=== PATIENT | female | born 1985 | race Caucasian/White ===

== ENCOUNTER 2022-08-25 12:32 | Outpatient (CLI) | payer SELFPAY | END 2022-08-25 12:33 | disposition home or self-care (01) | LOC: NFLDREF 12:32 | PROVIDERS: Visit Provider Registered Nurse | DX: Z01.419 Encounter for gynecological examination (general) (routine) without abnormal findings (principal); E66.9 Obesity, unspecified; R63.5 Abnormal weight gain | CPT/HCPCS: 84443 ==

== ENCOUNTER 2023-10-14 13:42 | Outpatient (CLI) | payer MEDICAID, SELFPAY ==
--- OUTSIDE RECORDS SUMMARY | 2023-10-14 13:44 | XMS_ITS | Clinical Summary ---
Author Name Unknown Organization [facility] Address [place], [place] [address] Care Team Providers Care Post Hole Digger Name Role Phone Adelita Galicia LP Unavailable Pcp, No Primary Care Provider Unavailabl e Allergies No known active allergies Medications Medication Sig Dispensed Refills Start Date End Date Status fluticasone (50 mcg per actuation) nasal solution (FLONASE)Indication s:Seasonal allergic rhinitis, unspecified allergic rhinitis trigger Inhale 2 Sprays into both nostrils once daily. 1 Bottle 11 09/21/2016 Active triamcinolone (ARISTOCORT; KENALOG) 0.1 % creamIndications:De rmatitis Apply topically to affected area(s) 2 times daily. To itchy area, if generalized rash use Prednisone instead 1 Tube 07/26/2017 Active hydroCHLOROthiazide (HCTZ) 25 mg tabletIndications:P edal edema TAKE 1 TABLET BY MOUTH ONCE DAILY. 30 tablet 10/23/2017 Active LORazepam (ATIVAN) 0.5 mg tabIndications:Situ ational anxiety Take 1 tablet by mouth every 6 hours if needed for Anxiety or Other (Specify) (take 1 hour before flying). 10 tablet 06/13/2018 Active pseudoephedrine-gua FENesin (MUCINEX D MAXIMUM STRENGTH) 120-1,200 mg [id number]:Reno al congestion Take 1 Tab by mouth 2 times daily. 24 Tab 08/01/2018 Active Hospital, Clinic, or Other Facility Administered Medication Ordered Dose Route Frequency Start Date End Date Status etonogestrel subdermal implant 1 Each (NEXPLANON)Indications:Encoun ter for contraceptive management, unspecified contraceptive encounter type 1 Each Sdrm Q 3 YEARS 11/07/2015 Active etonogestrel subdermal implant 1 Each (NEXPLANON)Indications:Insert ion of Nexplanon 1 Each Sdrm Q 3 YEARS 06/13/2018 Active Active Problems Problem Noted Date Diagnosed Date Hx of abnormal cervical Pap smear 07/26/2017 Overview: DANIELLE 1 2013, persistent HPV x 2 years Pap normal 2016 BMI 32.0-32.9,adult 09/18/2011 Resolved Problems Problem Noted Date Diagnosed Date Resolved Date ASCUS with positive high risk HPV cervical 01/05/2014 07/26/2017 Overview: 02/17/2014 [place]; DANIELLE 1 01/17/2015 Pap; Pap NIL/HPV positive 07/18/2014 [place]; DANIELLE 1 & Pap ASCUS/HPV positive; 08/2016 Pap: NIL/HPV Negative; Pap/HPV in 3 years; Due- 08/2019 Immunizations Name Administration Dates Next Due DTP 01/02/1989, 9,03/16/1988,11/05 DTaP 02/07/1993 Hepatitis A (Adult) 09/27/2012 Hepatitis B (Peds) 01/21/2006,03/05/2000, 000 Human Papilloma Virus Vaccine 12/28/2013, 013,08/31/2007 Influenza, IIV4 03/01/2017 Influenza, IIV4 (=>6mos) MDV 03/10/2017 MMR 01/16/2000,01/02/1989 Meningococcal Vaccine (Menactra) 01/21/2006 Meningococcal Vaccine (Menomune) 01/21/2006 Oral Polio Vaccine 02/07/1993, 9,03/16/1988,11/05 Td (Age >=7 Years) 11/29/2007,01/16/2000 Td, Preservative Free (age >= 7 Years) 8 Tdap 08/31/2007 Family History Medical History Relation Name Comments Diabetes Maternal Grandfather Cancer-breast Maternal Grandmother GI Disease Paternal Aunt crohns Relation Name Status Comments Father Alive Maternal Grandfather Maternal Grandmother Mother Alive Paternal Aunt Social History Tobacco Use Types Packs/Day Years Used Date Smoking Tobacco: Former Cigarettes Q uit: 12/29/2006 Smokeless Tobacco: Never Tobacco Cessation:Counseling Given: Yes Alcohol Use Standard Drinks/Week Comments Yes 0 (1 standard drink = 0.6 oz pur e alcohol) occassional PHQ-2 Answer Date Recorded PHQ-2 Score 0 08/01/2018 [facility] - Occupational Stress Questionnaire Answer Date Recorded Feeling of Stress Only a little 08/01/2018 Exercise Vital Sign Answer Date Recorde d Days of Exercise per Week 4 days 2018 Minutes of Exercise per Session 30 min 08/01/2018 Sex and Gender Information Value Date Recorded Sex Assigned at Not on file Gender Identity Not on file Sexual Orientation Not on file Obstetrics History Para Term AB IAB SAB Ectopic Multiple Livin g Live Births 0 0 0 0 0 0 0 0 0 0 Last Filed Vital Signs Vital Sign Reading Time Taken Comments Blood Pressure 126/83 08/01/2018 9:11 AM ORCHESTRA DIRECTOR Pulse 84 08/01/2018 9:11 AM ORCHESTRA DIRECTOR Temperature 36.6 ??C (97.9 ??F) 08/01/2018 9:11 AM CS T Respiratory Rate - - Oxygen Saturation 99% 08/01/2018 9:11 AM ORCHESTRA DIRECTOR Inhaled Oxygen Concentration - - Weight 98.1 kg (216 lb 4.8 oz) 08/01/2018 9:11 A M ORCHESTRA DIRECTOR Height 163.5 cm (5' 4.37) 08/01/2018 9:11 AM CS T Body Mass Index 36.7 08/01/2018 9:11 AM ORCHESTRA DIRECTOR Plan of Treatment Health Maintenance Due Date Last Done Comments Hepatitis C screening for age 18-79 09/16/2005 BMI (ht and wt on same day) for age 18+ 08/02/2019 08/01/2018, 06/13/2018, 05/18/2018, Additional history exists Depression screening for age 12+ 08/05/2019 08/04/2018, 08/01/2018, 07/26/2017, Additional history exists COVID-19 vaccine series (2022- season) 2023 Influenza for age 9-49 01/30/2024 03/10/2017, 2016 Pap test for age 21-65 08/25/2025 , 08/25/2022, 03/25/2021, Additional history exists Tetanus booster 12/07/2027 12/06/2017, 07/0 05/2007, 08/31/2007, Additional history exists Tdap Completed 08/31/2007 HIV for age 15-65 Completed 08/01/2018 Pneumococcal series for age 6-64 Aged Out No longer eligible based on patient's age to complete this topic Procedures Procedure Name Priority Date/Time Associated Diagnosis Comments HPV THIN PREP Routine 08/25/2022 12:00 PM CDT ANTI HIV 1/2 Routine 08/01/2018 10:16 AM ORCHESTRA DIRECTOR Encounter for screening for HIV from Last 3 Months or Most Recently Relevant to Health Maintenance Results * HPV HIGH RISK (08/25/2022 12:00 PM CDT) TYPE 16 Negative Negative 09/01/2022 4:56 PM CDT [facility] TYPE 18 Negative Negative 09/01/2022 4:56 PM CDT [facility] OTHER HIGH RISK TYPES Negative Negative 09/01/2022 4:56 PM CDT [facility] Other (Cervical) 08/25/2022 12:00 PM CDT 08/28/2022 5:35 PM CDT Narrative [facility] - 09/01/2022 4:56 PM CDT HPV types 16, 18, 31, 33, 35, 39, 45, 51, 52, 56, 58, 59, 66 and 68 DNA were undetectable or below the pre-set threshold. Methodology: Mehdi Bre 4800 HPV Test Indira Lorenzo NP MICROBIOLOGY [facility] [address] [place] [address], * ANTI HIV 1/2 (08/01/2018 10:16 AM ORCHESTRA DIRECTOR) HIV-1/HIV-2 ANTIBODY Non-Reacti ve Non-Reacti ve 08/01/2018 4:25 PM ORCHESTRA DIRECTOR [facility] Comment:HIV-1 p24 and HIV-1/ HIV-2 Ab not detected. Blood BLOOD SPECIMEN / Unknown Venipuncture / Unknown 08/01/2018 10:16 AM ORCHESTRA DIRECTOR 08/01/2018 10:16 AM ORCHESTRA DIRECTOR Crys Miller MD SEND OUTS [facility] [address] [place] [address], from Last 3 Months or Most Recently Relevant to Health Maintenance Care Teams Post Hole Digger Relationship Specialty Start Date End Date Pcp, No . PCP - General 02/11/19 Adelita Galicia LP Psychologist Psychology 11/23/11
--- NOTE | 2023-10-14 14:00 | US_ITS ---
Patient: CHERRI SANTANA Facility:?[facility] Patient ID:?[id number] Site Patient ID:?[id number]. Site :?[id number] Study:?US-OB Pelvis DATING AND VIABILITY-10/14/2023 2:31:38 PM Ordering Physician:?XENA YOUNG Final Report: INDICATION: First trimester scan, establish dates. COMPARISON: None. TECHNIQUE: Real-time banks-scale imaging of the pelvis was performed. FINDINGS: Sonographic imaging demonstrates a single living intrauterine gestation. The embryo demonstrates a regular cardiac rate measuring 169 beats per minute. The embryo`s crown-rump length measurement of 1.5 cm corresponds to a gestational age of 7 weeks 6 days with a sonographic due date of 05/26/2024. There is a normal-appearing yolk sac. There are no gross abnormalities noted within the embryo at this early state of development. The gestational sac has a normal appearance. There is no evidence of a perigestational hemorrhage. The amount of fluid within the sac appears appropriate for gestational age. The cervix is closed. The myometrium appears normal. The ovaries are of normal size. Corpus luteal cyst right ovary. There are no suspicious fluid collections noted in the cul-de-sac. IMPRESSION: Normal first trimester OB ultrasound exam. Gestational age calculated at 7 weeks 6 days with a sonographic due date of 05/26/2024. Dictated by Kota Gustafson MD @ 10/15/2023 9:55:08 AM Signed by:?Kota Gustafson MD @10/15/2023 9:55:08 AM (Electronic Signature)
== END 2023-10-14 13:43 | disposition home or self-care (01) ==
LOC: US 13:43
PROVIDERS: PCP Family Medicine; Visit Provider Advanced Practice Midwife
DX: Z34.91 Encounter for supervision of normal pregnancy, unspecified, first trimester (principal); Z3A.01 Less than 8 weeks gestation of pregnancy
CPT/HCPCS: 76817

== ENCOUNTER 2023-10-14 14:53 | Outpatient (CLI) | payer MEDICAID, SELFPAY ==
--- OUTSIDE RECORDS SUMMARY | 2023-10-14 14:56 | XMS_ITS | Clinical Summary ---
Author Name Unknown Organization [facility] Address [place], [place] [address] Care Team Providers Care Marketing Planner Name Role Phone Adelita Galicia LP Unavailable [...] FENesin (MUCINEX D MAXIMUM STRENGTH) 120-1,200 mg [id number]:Reno al congestion Take 1 Tab by mouth [...] risk HPV cervical 01/05/2014 07/26/2017 Overview: 02/17/2014 [place]; DANIELLE 1 01/17/2015 Pap; Pap NIL/HPV positive 07/18/2014 [place]; DANIELLE 1 & Pap ASCUS/HPV positive; 08/2016 [...] Answer Date Recorded PHQ-2 Score 0 08/01/2018 [facility] - Occupational Stress [...] Comments Blood Pressure 126/83 08/01/2018 9:11 AM MENS LOCKER ROOM ATTENDANT Pulse 84 08/01/2018 9:11 AM MENS LOCKER ROOM ATTENDANT Temperature 36.6 ??C (97.9 ??F) 08/01/2018 9:11 AM CS T Respiratory Rate - - Oxygen Saturation 99% 08/01/2018 9:11 AM MENS LOCKER ROOM ATTENDANT Inhaled Oxygen Concentration - - Weight 98.1 kg (216 lb 4.8 oz) 08/01/2018 9:11 A M MENS LOCKER ROOM ATTENDANT Height 163.5 cm (5' 4.37) 08/01/2018 9:11 AM CS T Body Mass Index 36.7 08/01/2018 9:11 AM MENS LOCKER ROOM ATTENDANT Plan of Treatment Health Maintenance Due Date [...] ANTI HIV 1/2 Routine 08/01/2018 10:16 AM MENS LOCKER ROOM ATTENDANT Encounter for screening for HIV from Last 3 Months or Most Recently Relevant to Health Maintenance Results * HPV HIGH RISK (08/25/2022 12:00 PM CDT) TYPE 16 Negative Negative 09/01/2022 4:56 PM CDT [facility] TYPE 18 Negative Negative 09/01/2022 4:56 PM CDT [facility] OTHER HIGH RISK TYPES Negative Negative 09/01/2022 4:56 PM CDT [facility] Other (Cervical) 08/25/2022 12:00 PM CDT 08/28/2022 5:35 PM CDT Narrative [facility] - 09/01/2022 4:56 PM CDT HPV types 16, 18, 31, 33, 35, 39, 45, 51, 52, 56, 58, 59, 66 and 68 DNA were undetectable or below the pre-set threshold. Methodology: Mehdi Bre 4800 HPV Test Indira Lorenzo NP MICROBIOLOGY [facility] [address] [place] [address], * ANTI HIV 1/2 (08/01/2018 10:16 AM MENS LOCKER ROOM ATTENDANT) HIV-1/HIV-2 ANTIBODY Non-Reacti ve Non-Reacti ve 08/01/2018 4:25 PM MENS LOCKER ROOM ATTENDANT [facility] Comment:HIV-1 p24 and HIV-1/ HIV-2 Ab not detected. Blood BLOOD SPECIMEN / Unknown Venipuncture / Unknown 08/01/2018 10:16 AM MENS LOCKER ROOM ATTENDANT 08/01/2018 10:16 AM MENS LOCKER ROOM ATTENDANT Crys Miller MD SEND OUTS [facility] [address] [place] [address], from Last 3 Months or Most Recently Relevant to Health Maintenance Care Teams Marketing Planner Relationship Specialty Start Date End Date Pcp, No . PCP - General 02/11/19 Adelita Galicia LP Psychologist Psychology 11/23/11
[2023-10-14 19:53] LABS: Chlamydia DNA Amplified* NOT DETECTED (No Detected); GC DNA Amplified* NOT DETECTED (No Detected)
== END 2023-10-14 14:54 | disposition home or self-care (01) ==
PROVIDERS: PCP Family Medicine; Visit Provider Physician Assistant
DX: Z34.01 Encounter for supervision of normal first pregnancy, first trimester (principal); Z67.40 Type O blood, Rh positive
CPT/HCPCS: 86592; 86703; 86704; 86706; 86762; 86787; 86803; 86850; 86900; 86901; 87086; 87340; 87491; 87591